=== PATIENT | male | born 1955 | race Caucasian/White ===

== ENCOUNTER 2019-08-25 07:04 | Inpatient (IN) | payer MEDICARE, MEDICAID ==
[~2019-08-25] VITALS: Ht 180.3 cm; Wt 63.5 kg
[2019-08-25] MEDS ORDERED: IV NS 0.9% 500 ML BAG IV ONE (07:30)
--- NOTE | 2019-08-25 07:33 | NUR ---
XRAY AT BEDSIDE
--- NOTE | 2019-08-25 07:38 | NUR ---
DANIEL FROM HOME TO ER BED 9. AAOX4. NO RESP DISTRESS NOTED. C/O VOMMITING OF BLOOD X 1 EPISODE. PT REPORTS THAT HE IT HAPPENED AT 5AM. STARTED DRY HEEVING AND THREW UP BRIGHT RED BLOOD WITH SCAB LIKE MATTERS. PT IS DENYING NAUSEA AT THIS TIME. NO ABDOMINAL PAIN. PT CAME IN WITH PICC ON HIS MIRNA W/ 1 LUMEN. BLOOD DRAWN AND SENT TO LAB. AWAITING MD FOR EVAL.
[2019-08-25 07:49] LABS: CALCIUM, SERUM 8.2 mg/dL (8.5-10.1); CARBON DIOXIDE 23 mmol/L (21-32); CHLORIDE 100 mmol/L (98-107); CREATININE 0.8 mg/dL (0.6-1.3); GLUCOSE 107 mg/dL (74-106); SODIUM SERUM 132 mmol/L (136-145); UREA NITROGEN, BLOOD 19 mg/dL (7-18)
[2019-08-25 07:54] LABS: ALANINE AMINOTRANSFERASE 49 U/L (12-78); ALBUMIN 2.7 g/dL (3.4-5.0); ALKALINE PHOSPHATASE 152 U/L (46-116); ASPARTATE AMINOTRANSFERASE 70 U/L (15-37); BILIRUBIN,DIRECT 0.3 mg/dL (0.0-0.2); BILIRUBIN,TOTAL 1.1 mg/dL (0.2-1.0); TOTAL PROTEIN, SERUM 6.7 g/dL (6.4-8.2)
[2019-08-25 07:55] LABS: BASOPHILS % (AUTO) 0.5 % (0.0-2.0); HEMATOCRIT 31 % (39-51); HEMOGLOBIN 10.4 g/dL (13.5-17.5); LYMPHOCYTES # (AUTO) 0.4 /CMM (0.8-4.8); LYMPHOCYTES % (AUTO) 7.9 % (20.0-44.0); MEAN CORPUSCULAR HGB CONC 34 g/dl (31.0-36.0); MEAN CORPUSCULAR VOLUME 96 fL (80-96); MONOCYTES # (AUTO) 0.3 /CMM (0.1-1.30); MONOCYTES % (AUTO) 7.1 % (2.0-12.0); NEUTROPHILS # (AUTO) 2.5 /CMM (1.8-8.9); NEUTROPHILS % (AUTO) 51.8 % (43.0-81.0); PLATELET COUNT (AUTO) 121 /CMM (150-450); RED BLOOD CELL COUNT(AUTO) 3.21 MIL/uL (4.5-6.0); WHITE BLOOD COUNT (AUTO) 4.8 K/uL (4.3-11.0)
[2019-08-25 07:57] LABS: EOSINOPHILS % (AUTO) 32.7 % (0.0-6.0)
[2019-08-25 08:28] LABS: EOSINOPHILS % (MANUAL) 34 % (0-4); LYMPHOCYTES % (MANUAL) 7 % (16-48); MONOCYTES % (MANUAL) 5 % (0-11.0); NEUTROPHILS % (MANUAL) 54 (42-76)
--- NOTE | 2019-08-25 09:21 | NUR ---
PATIENT C/O NAUSEA. MADE MD AWARE, RECEIVED VERBAL ORDER OF ZOFRAN 4MG IV. CARRIED OUT
[2019-08-25] MEDS ORDERED: ONDANSETRON HCL/PF 4 MG/2 ML VIAL ONE (09:23)
[2019-08-25] MEDS ORDERED: AMBR10TA5 PO (09:25)
[2019-08-25] MEDS ORDERED: SILD20TA2 PO (09:25)
--- NOTE | 2019-08-25 09:40 | NUR ---
got ms bed 201
--- NOTE | 2019-08-25 09:46 | NUR ---
ronald paged its nolan
[2019-08-25] MEDS ORDERED: ONDANSETRON HCL/PF - ER 4 MG/2 ML VIAL IV ONE (10:00)
--- NOTE | 2019-08-25 10:17 | NUR ---
report given to china of ms unit
--- NOTE | 2019-08-25 10:30 | NUR ---
ms rn received a new admission from er,63 year old male, awake,alert,oriented x4,came w/ dx of gi bleed,no symptoms at this time, denies pain, will monitor patient's condition.
--- NOTE | 2019-08-25 11:00 | NUR ---
ms rn amy francisco for admission, aware of this admission, will wait for her to see patient.
--- NOTE | 2019-08-25 11:39 | NUR ---
ms rn on bed, no distress noted.
[2019-08-25] MEDS ORDERED: ZOLPIDEM TARTRATE 5 MG TABLET PO PRN (12:30)
[2019-08-25] MEDS ORDERED: HYDROCODONE/APAP 5/325MG 1 EACH TABLET PO PRN (12:30)
[2019-08-25] MEDS ORDERED: MAGNESIUM HYDROXIDE 30 ML UDC PO PRN (12:30)
[2019-08-25] MEDS ORDERED: MAG HYDROX/AL HYDROX/SIMETH 30 ML UDC PO PRN (12:30)
[2019-08-25] MEDS ORDERED: ACETAMINOPHEN 325 MG TABLET PO PRN (12:30)
[2019-08-25] MEDS ORDERED: Z GUARD REMEDY 2 OZ OINT TP PRN (12:30)
--- NOTE | 2019-08-25 12:30 | NUR ---
ms martha was seen by nolan mcpherson/ orders made and carried out.
[2019-08-25] MEDS ORDERED: OCTREOTIDE 50 MCG in IV NS 0.9% 50 ML IV ONE (13:00)
[2019-08-25] MEDS ORDERED: OCTREOTIDE 1,250 MCG in IV NS 0.9% 247.5 ML IV PRN (13:30)
--- NOTE | 2019-08-25 13:58 | NUR ---
ms rn started on sandostatin drip,tolerated well.
[2019-08-25] MEDS ORDERED: ALPRAZOLAM 0.25 MG TABLET PO PRN (14:00)
--- NOTE | 2019-08-25 14:10 | NUR ---
ms rn patient vomited a lrge amount of bloody vomitous, texted nolan w/ orders made and carried out.
[2019-08-25 14:28] LABS: BASOPHILS % (AUTO) 0.3 % (0.0-2.0); EOSINOPHILS % (AUTO) 11.1 % (0.0-6.0); HEMATOCRIT 28 % (39-51); HEMOGLOBIN 9.5 g/dL (13.5-17.5); LYMPHOCYTES # (AUTO) 0.7 /CMM (0.8-4.8); LYMPHOCYTES % (AUTO) 12.4 % (20.0-44.0); MEAN CORPUSCULAR HGB CONC 34 g/dl (31.0-36.0); MEAN CORPUSCULAR VOLUME 97 fL (80-96); MONOCYTES # (AUTO) 0.5 /CMM (0.1-1.30); MONOCYTES % (AUTO) 8.6 % (2.0-12.0); NEUTROPHILS # (AUTO) 3.7 /CMM (1.8-8.9); NEUTROPHILS % (AUTO) 67.6 % (43.0-81.0); PLATELET COUNT (AUTO) 140 /CMM (150-450); RED BLOOD CELL COUNT(AUTO) 2.93 MIL/uL (4.5-6.0); WHITE BLOOD COUNT (AUTO) 5.4 K/uL (4.3-11.0)
[2019-08-25] MEDS: ONDANSETRON HCL/PF 4 MG/2 ML VIAL IVP PRN ×2 (14:32→23:39)
[2019-08-25] MEDS ORDERED: ANESTHESIA TRAY IN PYXIS 1 EA TRAY MC ONE (14:38)
[2019-08-25] MEDS: IV NS 0.9% 1,000 ML IV PRN (14:58)
[2019-08-25] MEDS: CEFTRIAXONE 1 G in IV D5W 50 ML IV SCH (15:19)
[2019-08-25] MEDS: METRONIDAZOLE 500MG/ NS 100ML 500 MG in PREMIX 1 EA IV SCH ×2 (17:42→23:57)
--- NOTE | 2019-08-25 19:17 | NUR ---
ms rn patient will have egd maryann, nolan will see patient maryann.
--- NOTE | 2019-08-25 19:30 | NUR ---
MS RN OPENING NOTE RECEIVED PATIENT IN BED. A/OX4. TOLERATING ROOM AIR. RESPIRATIONS ARE EVEN AND UNLABORED. NO S/S SOB NOTED. DENIES PAIN AT THIS TIME. IN NO APPARENT DISTRESS. IV ACCESS IN MIRNA PICC LINE SINGLE LUMEN RUNNING SANDASTATIN @10 AND FLAGYL AT 100ML/HR. BED IS LOW AND LOCKED, HOB FLAT, SIDE RIALS UP X2.. CALL LIGHT WITHIN REACH. WILL CONTINUE TO MONITOR.
[2019-08-25 19:31] LABS: BASOPHILS % (AUTO) 0.6 % (0.0-2.0); EOSINOPHILS % (AUTO) 12.9 % (0.0-6.0); HEMATOCRIT 25 % (39-51); HEMOGLOBIN 8.3 g/dL (13.5-17.5); LYMPHOCYTES # (AUTO) 0.6 /CMM (0.8-4.8); LYMPHOCYTES % (AUTO) 13.6 % (20.0-44.0); MEAN CORPUSCULAR HGB CONC 34 g/dl (31.0-36.0); MEAN CORPUSCULAR VOLUME 97 fL (80-96); MONOCYTES # (AUTO) 0.4 /CMM (0.1-1.30); MONOCYTES % (AUTO) 8.9 % (2.0-12.0); NEUTROPHILS # (AUTO) 3.1 /CMM (1.8-8.9); PLATELET COUNT (AUTO) 113 /CMM (150-450); RED BLOOD CELL COUNT(AUTO) 2.55 MIL/uL (4.5-6.0); WHITE BLOOD COUNT (AUTO) 4.8 K/uL (4.3-11.0)
--- NOTE | 2019-08-25 19:45 | NUR ---
MS RN NOTE GERMAN YAENS CAME TO SEE PATIENT, VERBAL ORDER TO TRANSFER TO TELE D/T PATIENT HAVING BRIGHT RED BLOOD EMESIS, H/H DROPPING, AND FEELING DIZZY UPON STANDING AND WALKING. ALSO ORDERED 1 UNIT PRBC AFTER EGD PROCEDURE. WILL NOTE AND ENDORSE TO TELE NURSE.
[2019-08-25 19:57] VITALS: BP 105/66
[2019-08-25 20:00] VITALS: BP 105/66
[2019-08-25] MEDS ORDERED: LORAZEPAM INJ 2 MG/ML VIAL IV PRN (20:00)
[2019-08-25] MEDS ORDERED: FAMOTIDINE/PF INJ 20 MG/2 ML VIAL IV ONE (20:17)
--- NOTE | 2019-08-25 20:30 | NUR ---
MS RN NOTE OR NURSES TAKING PATIENT FOR EGD PROCEDURE NOW.
--- NOTE | 2019-08-25 20:35 | NUR ---
MS RN NOTE GAVE REPORT TO ROSETTA WILKS IN 3W. WELT BUTTER HAND TOOK ALL BELONGINGS TO FROM 322-2.
[2019-08-25 21:26] VITALS: BP 104/53
--- NOTE | 2019-08-25 21:26 | NUR ---
MACHINE SHOP REPAIR TECHNICIAN NOTES RECEIVED PATIENT POST EGD PROCEDURE ON 2125. PATIENT IS AWAKE, ALERT AND ORIENTED X 4. BREATHING EVEN AND UNLABORED ON ROOM AIR. ABDOMEN IS SOFT AND NONDISTENDED. IV ON MIRNA PICC CLEAN DRY AND INTACT. SHOWS NO SIGNS OF REDNESS, NO INFILTRATION. VITAL SIGNS ARE STABLE. SAFETY PRECAUTION IN PLACE. BED IN LOWEST POSITION, LOCKED, AND CALL LIGHT KEPT WITHIN REACH. WILL CONTINUE TO MONITOR.
[2019-08-25] MEDS: PANTOPRAZOLE 40 MG VIAL IV SCH (21:46)
[2019-08-25] MEDS: TEMAZEPAM 7.5 MG CAPSULE PO SCH (21:56)
[2019-08-26] VITALS (12 sets, daily range): BP systolic 105–125; BP diastolic 56–68
--- NOTE | 2019-08-26 02:00 | NUR ---
MS RN NOTES PATIENT START BLOOD TRANSFUSION ON 0200. VITAL SIGNS STABLE. WILL CONTINUE TO MONITOR.
--- NOTE | 2019-08-26 06:00 | NUR ---
PSYCHOLOGY DEPARTMENT CHAIR NOTES COMPLETED 1 PRBC. NO SIGNS OF INFUSION REACTION. VITAL SIGNS STABLE THROUGH TRANSFUSION.
[2019-08-26] MEDS: METRONIDAZOLE 500MG/ NS 100ML 500 MG in PREMIX 1 EA IV SCH ×4 (06:07→23:14)
--- NOTE | 2019-08-26 06:40 | NUR ---
GENERATION MANAGER NOTES PATIENT ASLEEP IN BED ALERT AND ORIENTED X 4. BREATHING EVEN AND UNLABORED ON ROOM AIR. ABDOMEN IS SOFT AND NONDISTENDED. IV ON MIRNA PICC CLEAN DRY AND INTACT. SHOWS NO SIGNS OF REDNESS, NO INFILTRATION. ALL DUE MEDICATIONS GIVEN. TELE ON SR 70'S. SAFETY PRECAUTION IN PLACE. BED IN LOWEST POSITION, LOCKED, AND CALL LIGHT KEPT WITHIN REACH. WILL ENDORSE TO ONCOMING NURSE.
--- NOTE | 2019-08-26 07:31 | NUR ---
FARMWORKER DAIRY OPENING NOTES RECEIVED PATIENT IN BED, AWAKE, A/O X4. PATIENT ON ROOM AIR BREATHING EVENLY, UNLABORED, WITH NO ACUTE SIGNS OF DISTRESS AT THE MOMENT. PATIENT ON TELE MONITOR WITH NORMAL SINUS RHYTHM IN THE 70S. NPO AT THIS TIME. MIRNA PICC INTACT AND FLUSHING WELL. NO SIGNS OF INFILTRATION. SAFETY PRECAUTIONS IN PLACE; BED IN LOW POSITION AND LOCKED, RAILS UP X 2, CALL LIGHT WITHIN REACH. WILL CONTINUE TO MONITOR THE PATIENT.
[2019-08-26 07:38] LABS: CREATININE 0.8 mg/dL (0.6-1.3); MAGNESIUM 1.9 mg/dL (1.8-2.4); PHOSPHORUS 2.8 mg/dL (2.5-4.9); POTASSIUM 3.9 mmol/L (3.5-5.1)
[2019-08-26] MEDS: PANTOPRAZOLE 40 MG VIAL IV SCH ×2 (08:29→21:17)
[2019-08-26] MEDS: PROPRANOLOL HCL 10 MG TABLET PO SCH ×2 (10:24→21:18)
[2019-08-26] MEDS: DOCUSATE SODIUM 100 MG CAPSULE PO SCH (10:38)
[2019-08-26] MEDS: SILDENAFIL CITRATE 20 MG TABLET PO SCH (10:39)
[2019-08-26] MEDS: CALCIUM CARBONATE 500 MG TAB.CHEW PO SCH ×2 (10:53→20:04)
--- NOTE | 2019-08-26 11:04 | NUR ---
RN NOTES PATIENT COMPLAINING OF SEVERE HEARTBURN AND CHEST DISCOMFORT. MICHAEL PORTER NOTIFIED. TUMS ADMINISTERED ORDERED. STAT TROPONIN LEVEL ORDER IN PLACE BY MICHAEL PORTER. WILL CONTINUE TO MONITOR PATIENT.
[2019-08-26 11:21] LABS: BASOPHILS % (AUTO) 0.4 % (0.0-2.0); HEMATOCRIT 27 % (39-51); HEMOGLOBIN 8.9 g/dL (13.5-17.5); LYMPHOCYTES # (AUTO) 0.5 /CMM (0.8-4.8); LYMPHOCYTES % (AUTO) 8.4 % (20.0-44.0); MEAN CORPUSCULAR HGB CONC 33 g/dl (31.0-36.0); MEAN CORPUSCULAR VOLUME 96 fL (80-96); MONOCYTES # (AUTO) 0.4 /CMM (0.1-1.30); MONOCYTES % (AUTO) 6.9 % (2.0-12.0); NEUTROPHILS # (AUTO) 4.1 /CMM (1.8-8.9); NEUTROPHILS % (AUTO) 74.3 % (43.0-81.0); PLATELET COUNT (AUTO) 127 /CMM (150-450); RED BLOOD CELL COUNT(AUTO) 2.77 MIL/uL (4.5-6.0); WHITE BLOOD COUNT (AUTO) 5.5 K/uL (4.3-11.0)
[2019-08-26] MEDS: CEFTRIAXONE 1 G in IV D5W 50 ML IV SCH (15:28)
--- NOTE | 2019-08-26 17:42 | NUR ---
RN NOTES ASKED PT IF HE CAN PROVIDE HOME MED AMBRISENTAN AND HE SAID NO, MICHAEL PORTER MADE AWARE AND OK TO DC MED. WILL CONTINUE TO MONITOR PT
--- NOTE | 2019-08-26 18:45 | NUR ---
RN CLOSING NOTES PATIENT IN BED RESTING COMFORTABLY WATCHING TV AT THIS TIME. A/O X 4. HEAD OF THE BED ELEVATED AT 30 DEGREED WITH NO SIGNS OF DISTRESS AT THE MOMENT. ABLE TO VERBALIZE NEEDS. PATIENT ON ROOM AIR TOLERATING WELL. MIRNA PICC INTACT AND FLUSHING WELL. IV ANTIBIOTIC FLAGYL INFUSING AT THIS TIME. SAFETY MEASURES IN PLACE; BED IN LOW POSITION AND LOCKED, RAILS UP X 2, CALL LIGHT WITHIN REACH OF PT, WILL ENDORSE TO CERTIFIED EMERGENCY VEHICLE TECHNICIAN NURSE FOR AGUILA.
--- NOTE | 2019-08-26 19:02 | NUR ---
RN NOTES: RECEIVED LYING COMFORTABLY IN BED, A/OX4, ON RA SPO2-94%, NO LABORED BREATHING NOTED, ORIENTED TO UNIT AND STAFF, PICC ON MIRNA WITH IVF OF NS AT 75 ML/HR, FALL,SAFETY AND ASPIRATION PRECAUTION OBSERVED, BED LOW AND LOCKED, CALL LIGHT WITHIN EASY REACH.BED SIDE COMMODE AND URINAL AT BED SIDE.WILL CONTINUE TO MONITOR FOR ANY SIGN OF AGUILA/BLEEDING.
[2019-08-26] MEDS: TEMAZEPAM 7.5 MG CAPSULE PO SCH (21:19)
--- NOTE | 2019-08-27 01:00 | NUR ---
RN NOTES: ABLE TO SLEEP AND REST NO COMPLAINTS OF PAIN OR DISCOMFORT, KEPT MONITORED,ON CLOSE WATCH, NEEDS ATTENDED.
[2019-08-27] MEDS: IV NS 0.9% 1,000 ML IV PRN (05:02)
[2019-08-27] MEDS: METRONIDAZOLE 500MG/ NS 100ML 500 MG in PREMIX 1 EA IV SCH (05:04)
--- NOTE | 2019-08-27 06:14 | NUR ---
RN NOTES: AWAKE, REQUEST TO AMBULATE, STEADY GAIT, NO PAIN OR DISCOMFORT,CONVERSANT, ABLE TO REST AND SLEEP.
--- NOTE | 2019-08-27 07:15 | NUR ---
MS RN OPENING NOTES RECEIVED PT IN BED, AWAKE, A/O X4. PT TOLERATING RA, WITH NO ACUTE RESPIRATORY DISTRESS NOTED. PT DENIES ANY PAIN OR DISCOMFORT AT THIS TIME. ALSO DENIES ANY CONCERNS AND QUESTIONS AT THIS MOMENT. IVF NS AT 75ML/HR TO MIRNA PICCLINE SINGLE LUMEN, INTACT AND FLUID INFUSING WELL. PT KEPT COMFORTABLE. CALL LIGHT KEPT WITHIN REACH. PT'S BED IN LOWEST, LOCKED POSITION WITH SRX3. WILL CONTINUE PLAN OF CARE.
--- NOTE | 2019-08-27 07:36 | NUR ---
RN NOTES: HE WANTS TO BE DISCHARGE TODAY, NO PAIN THE ENTIRE NIGHT, NO BLEEDING IN ORAL AND ANAL ORIFICE, CALLS AND NEEDS ATTENDED, KEPT ON CLOSE WATCH.ENDORSED FOR CONTINUITY OF CARE.
[2019-08-27 07:37] LABS: BASOPHILS % (AUTO) 0.5 % (0.0-2.0); CALCIUM, SERUM 7.6 mg/dL (8.5-10.1); CREATININE 0.8 mg/dL (0.6-1.3); EOSINOPHILS % (AUTO) 9.3 % (0.0-6.0); HEMATOCRIT 28 % (39-51); HEMOGLOBIN 9.5 g/dL (13.5-17.5); LYMPHOCYTES # (AUTO) 0.5 /CMM (0.8-4.8); LYMPHOCYTES % (AUTO) 11.6 % (20.0-44.0); MAGNESIUM 1.8 mg/dL (1.8-2.4); MEAN CORPUSCULAR HGB CONC 34 g/dl (31.0-36.0); MEAN CORPUSCULAR VOLUME 96 fL (80-96); MONOCYTES # (AUTO) 0.5 /CMM (0.1-1.30); MONOCYTES % (AUTO) 12.1 % (2.0-12.0); NEUTROPHILS % (AUTO) 66.5 % (43.0-81.0); PHOSPHORUS 2.7 mg/dL (2.5-4.9); PLATELET COUNT (AUTO) 111 /CMM (150-450); POTASSIUM 3.4 mmol/L (3.5-5.1); RED BLOOD CELL COUNT(AUTO) 2.95 MIL/uL (4.5-6.0); WHITE BLOOD COUNT (AUTO) 4.5 K/uL (4.3-11.0)
[2019-08-27 08:00] VITALS: BP 98/50
[2019-08-27 09:00] VITALS: BP 90/50
[2019-08-27] MEDS: PROPRANOLOL HCL 10 MG TABLET PO SCH (09:00)
[2019-08-27] MEDS: CALCIUM CARBONATE 500 MG TAB.CHEW PO SCH (09:18)
[2019-08-27] MEDS: PANTOPRAZOLE 40 MG VIAL IV SCH (09:18)
[2019-08-27] MEDS: DOCUSATE SODIUM 100 MG CAPSULE PO SCH (09:18)
[2019-08-27] MEDS: SILDENAFIL CITRATE 20 MG TABLET PO SCH (09:22)
[2019-08-27] MEDS ORDERED: POTASSIUM CHLORIDE 20 MEQ TAB.PRT.SR PO SCH (10:00)
[2019-08-27] MEDS ORDERED: PROP10TA68 PO (11:23)
[2019-08-27] MEDS ORDERED: METR500T PO (11:23)
[2019-08-27] MEDS ORDERED: METRONIDAZOLE 500 MG TABLET PO SCH (11:30)
--- NOTE | 2019-08-27 12:59 | NUR ---
MS HISTOLOGY TECH NOTES PT TO DISCHARGE HOME, ACCOMPANIED BY FRIEND VIA PRIVATE CAR. PT TOLERATING RA, WITH NO ACUTE RESPIRATORY DISTRESS NOTES. PT DENIES ANY PAIN OR DISCOMFORT AT THE TIME OF DISCHARGE. PT REVIEWED AND SIGNED DISCHARGE INSTRUCTIONS AND INVENTORY LIST; PRESCRIPTION SENT TO [facility]. ALL BELONGINGS WITH THE PATIENT. PICC MIRNA SINGLE LUMEN REMOVED WITH TIP INTACT. ALL NEEDS AND CARE PROVIDED TO PATIENT. VITAL SIGNS STABLE AND RECORDED. HOSPITALIST/GEOGRAPHIC INFORMATION SYSTEMS ANALYST/CC AND CN/NN AWARE OF DISCHARGE. PT LEFT THE UNIT AT 1255, ESCORTED BY PILE TRIMMER VIA WHEELCHAIR TO THE LOBBY.
== END 2019-08-27 12:55 | disposition home or self-care (01) | DRG 369 ==
LOC: ER 07:05 → MEDSG2 09:55 → TELE 21:42 → MED 08-26 13:36
PROVIDERS: ADMIT Nurse Practitioner Acute Care; ATTEND Nurse Practitioner Acute Care
PROC: 06L28CZ Occlusion of Gastric Vein with Extraluminal Device, Via Natural or Artificial Opening Endoscopic (ICD-10-PCS; principal; 2019-08-25)
PROC: 30233N1 Transfusion of Nonautologous Red Blood Cells into Peripheral Vein, Percutaneous Approach (ICD-10-PCS; 2019-08-25)
PROC: 02HV33Z Insertion of Infusion Device into Superior Vena Cava, Percutaneous Approach (ICD-10-PCS; 2019-08-26)
PROC: B548ZZA Ultrasonography of Superior Vena Cava, Guidance (ICD-10-PCS; 2019-08-26)
DX: I85.01 Esophageal varices with bleeding (principal); C22.9 Malignant neoplasm of liver, not specified as primary or secondary; D62 Acute posthemorrhagic anemia; K76.6 Portal hypertension; Z94.4 Liver transplant status; I86.4 Gastric varices; B19.20 Unspecified viral hepatitis C without hepatic coma; K31.89 Other diseases of stomach and duodenum; K74.60 Unspecified cirrhosis of liver; I27.20 Pulmonary hypertension, unspecified; Z79.899 Other long term (current) drug therapy; F12.90 Cannabis use, unspecified, uncomplicated; F17.200 Nicotine dependence, unspecified, uncomplicated
CPT/HCPCS: 36415; 71045-TC; 80048-TC; 80061-TC; 80076-TC; 83735-TC; 84100-TC; 84484-TC; 85025-TC; 85730-TC; 86850-TC; 86921-TC; 87081-TC; A4216; C9113; G0378; J0696; J2354; J2405; J2704; J3490; J7030; J7040; J7050; J7060; P9016-BL

== ENCOUNTER 2019-09-01 13:18 | Outpatient (CLI) | payer MEDICARE, MEDICAID ==
[~2019-09-01 13:18] MED LIST: METR500T PO; PROP10TA68 PO; SILD20TA2 PO
[2019-09-01 13:24] VITALS: BP 109/60
== END 2019-09-01 23:59 | disposition home or self-care (01) ==
LOC: MSC 13:18
PROVIDERS: ATTEND Internal Medicine
DX: I85.00 Esophageal varices without bleeding (principal); Z98.84 Bariatric surgery status; C22.0 Liver cell carcinoma; K74.60 Unspecified cirrhosis of liver; Z86.19 Personal history of other infectious and parasitic diseases; R18.8 Other ascites; R14.0 Abdominal distension (gaseous)

== ENCOUNTER 2019-09-01 18:13 | Emergency (ER) | payer MEDICARE, MEDICAID ==
[~2019-09-01] VITALS: Ht 175.3 cm; Wt 64.0 kg
--- NOTE | 2019-09-01 18:36 | NUR ---
PT BIB SELF C/O ABD PAIN AND DISTENSION X3 DAYS. 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 OVER THE LAST 3 DAYS DISTENSION GOT WORSE AND PAIN HAS BECOME INTOLERABLE. PMD IZABELLA AT [facility] ADVISED TO COME TO ER FOR PARACENTESIS. RESP EVEN UNLABORED, SKIN WARM DRY TAUT. A/OX4. IN ER BED 08.
--- NOTE | 2019-09-01 19:11 | NUR ---
seen and examined by
--- NOTE | 2019-09-01 20:02 | NUR ---
blood drawn and sent to lab
[2019-09-01 20:04] LABS: BASOPHILS # (AUTO) 0.1 /CMM (0.0-0.2); BASOPHILS % (AUTO) 1.3 % (0.0-2.0); EOSINOPHILS % (AUTO) 3.2 % (0.0-6.0); HEMATOCRIT 30 % (39-51); HEMOGLOBIN 9.9 g/dL (13.5-17.5); LYMPHOCYTES # (AUTO) 0.7 /CMM (0.8-4.8); LYMPHOCYTES % (AUTO) 17.2 % (20.0-44.0); MEAN CORPUSCULAR HGB CONC 33 g/dl (31.0-36.0); MEAN CORPUSCULAR VOLUME 95 fL (80-96); MONOCYTES # (AUTO) 0.8 /CMM (0.1-1.30); MONOCYTES % (AUTO) 17.7 % (2.0-12.0); NEUTROPHILS # (AUTO) 2.6 /CMM (1.8-8.9); NEUTROPHILS % (AUTO) 60.6 % (43.0-81.0); PLATELET COUNT (AUTO) 152 /CMM (150-450); RED BLOOD CELL COUNT(AUTO) 3.14 MIL/uL (4.5-6.0); WHITE BLOOD COUNT (AUTO) 4.3 K/uL (4.3-11.0)
[2019-09-01 20:19] LABS: CALCIUM, SERUM 8.2 mg/dL (8.5-10.1); CREATININE 0.8 mg/dL (0.6-1.3); POTASSIUM 3.8 mmol/L (3.5-5.1)
[2019-09-01 20:28] LABS: ALBUMIN 2.6 g/dL (3.4-5.0); BILIRUBIN,DIRECT 0.4 mg/dL (0.0-0.2); BILIRUBIN,TOTAL 1.1 mg/dL (0.2-1.0); TOTAL PROTEIN, SERUM 6.7 g/dL (6.4-8.2)
--- NOTE | 2019-09-01 21:20 | NUR ---
AT BEDSIDE FOR US AND PARACENTESIS
--- NOTE | 2019-09-01 21:38 | NUR ---
FINISHED PARACENTESIS PROCEDURE
[2019-09-01 21:57] LABS: LYMPHOCYTES % (MANUAL) 20 % (16-48); MONOCYTES % (MANUAL) 20 % (0-11.0); NEUTROPHILS % (MANUAL) 60 (42-76)
--- NOTE | 2019-09-01 22:09 | NUR ---
Patient discharged to home in stable condition. Written and verbal after care instructions given. Patient verbalizes understanding of instruction.
[2019-09-01 22:10] VITALS: BP 115/84
== END 2019-09-01 22:10 | disposition home or self-care (01) ==
LOC: ER 18:15
DX: R18.8 Other ascites (principal); K74.60 Unspecified cirrhosis of liver; Z79.899 Other long term (current) drug therapy; Z85.05 Personal history of malignant neoplasm of liver
CPT/HCPCS: 36415; 49083; 80048-TC; 80076-TC; 83690-TC; 85025-TC; 85730-TC

== ENCOUNTER 2023-09-11 17:05 | Emergency (ER) | payer MEDICARE, OTHER ==
[~2023-09-11] VITALS: Ht 177.8 cm; Wt 68.0 kg
[2023-09-11 20:31] LABS: BASOPHILS % (AUTO) 0.2 % (0.0-2.0); EOSINOPHILS % (AUTO) 0.6 % (0.0-6.0); HEMATOCRIT 42 % (39-51); HEMOGLOBIN 14.7 g/dL (13.5-17.5); LYMPHOCYTES # (AUTO) 0.8 K/uL (0.8-4.8); LYMPHOCYTES % (AUTO) 18.8 % (20.0-44.0); MEAN CORPUSCULAR HEMOGLOBIN 36 PG (26.0-33.0); MEAN CORPUSCULAR HGB CONC 35 g/dl (31.0-36.0); MEAN CORPUSCULAR VOLUME 102 fL (80-96); MONOCYTES # (AUTO) 0.8 K/uL (0.1-1.30); MONOCYTES % (AUTO) 18.9 % (2.0-12.0); NEUTROPHILS # (AUTO) 2.7 K/uL (1.8-8.9); NEUTROPHILS % (AUTO) 61.5 % (43.0-81.0); PLATELET COUNT (AUTO) 97 K/uL (150-450); RED CELL DISTRIBUTION WIDTH 14.8 % (11.5-15.0); WHITE BLOOD COUNT (AUTO) 4.3 K/uL (4.3-11.0)
[2023-09-11 20:43] LABS: APPEARANCE,URINE SLIGHTLY CLOUDY (CLEAR); BILIRUBIN,URINE 2+ (NEGATIVE); BLOOD, URINE 2+ Ery/uL (NEGATIVE); COLOR,URINE YELLOW (YELLOW); KETONES,URINE 1+ mg/dL (NEGATIVE); LEUKOCYTE ESTERASE ,URINE NEGATIVE (NEGATIVE); NITRITE, URINE POSITIVE (NEGATIVE); PROTEIN,URINE 1+ mg/dl (NEGATIVE); UGLUCOSE NEGATIVE (NEGATIVE)
[2023-09-11 20:47] LABS: ALBUMIN 3.3 g/dL (3.4-5.0); BILIRUBIN,DIRECT 0.9 mg/dL (0.0-0.2); BILIRUBIN,TOTAL 3.1 mg/dL (0.2-1.0); CALCIUM, SERUM 9.2 mg/dL (8.5-10.1); CREATININE 0.8 mg/dL (0.6-1.3); POTASSIUM 3.6 mmol/L (3.5-5.1); TOTAL PROTEIN, SERUM 7.4 g/dL (6.4-8.2)
[2023-09-11 20:49] LABS: INR 1.36 (0.91-1.10); PARTIAL THROMBOPLASTIN TIME 35.5 SEC (24.3-34.3); PROTHROMBIN TIME 14.1 SECS (9.2-11.1)
[2023-09-11 20:52] LABS: ADD URINE CULTURE YES; BACTERIA,URINE 1+ /HPF (None Seen); CALCIUM OXALATE CRYSTALS,UR Many /HPF (None Seen); MUCUS,URINE Moderate /LPF (None Seen); RBC,URINE 21-50 /HPF (0-2); WBC,URINE 0-2 /HPF (0-3)
[2023-09-11] MEDS ORDERED: KETOROLAC TROMETHAMINE 15 MG/ML VIAL IV ONE (21:00)
[2023-09-11 21:07] LABS: AMPHETAMINE, URINE NEGATIVE (NEGATIVE); BARBITURATE, URINE NEGATIVE (NEGATIVE); BENZODIAZEPINE, URINE NEGATIVE (NEGATIVE); COCCAINE, URINE NEGATIVE (NEGATIVE); OPIATE, URINE NEGATIVE (NEGATIVE); PHENCYCLIDINE SCREEN,URINE NEGATIVE (NEGATIVE)
[2023-09-11 21:12] LABS: CANNABINOID, URINE POSITIVE (NEGATIVE)
[2023-09-11] MEDS ORDERED: TRAM50TA2 PO ×2 (21:15→21:18)
[2023-09-11] MEDS ORDERED: CEPH500C2 PO (21:15)
[2023-09-11] MEDS ORDERED: CEPHALEXIN MONOHYDRATE 500 MG CAPSULE PO ONE ×2 (21:25→21:30)
[2023-09-11] MEDS ORDERED: IBUP-1957 PO (21:32)
[2023-09-11] MEDS ORDERED: KETOROLAC TROMETHAMINE 15 MG/ML VIAL ONE (21:36)
[2023-09-11 21:55] VITALS: BP 130/73; TEMP 98; O2SAT 100
[2023-09-11] MEDS ORDERED: KETOROLAC TROMETHAMINE 15 MG/ML VIAL IM ONE (22:00)
[2023-09-11 22:20] LABS: ANISOCYTOSIS 1+; BAND % (MANUAL) 2 % (0.0-5.0); LYMPHOCYTES % (MANUAL) 20 % (16-48); MONOCYTES % (MANUAL) 13 % (0-11.0); NEUTROPHILS % (MANUAL) 65 (42-76); PLATELET ESTIMATE DECREASED
== END 2023-09-11 21:56 | disposition home or self-care (01) ==
LOC: ER 17:05
DX: S22.32XA Fracture of one rib, left side, initial encounter for closed fracture (principal); S62.317A Displaced fracture of base of fifth metacarpal bone, left hand, initial encounter for closed fracture; N39.0 Urinary tract infection, site not specified; I10 Essential (primary) hypertension; R51.9 Headache, unspecified; Z79.899 Other long term (current) drug therapy; W18.39XA Other fall on same level, initial encounter; Y93.89 Activity, other specified; Y92.89 Other specified places as the place of occurrence of the external cause; Y99.8 Other external cause status
CPT/HCPCS: 29125; 36415; 70450; 70486; 71250; 73130; 74176; 80048; 80076; 80307; 80320; 81001; 85007; 85025; 85730; 87086; 96372; 99285; J1885; G0480

== ENCOUNTER 2025-03-28 08:31 | Emergency (ER) | payer MEDICARE, OTHER ==
[~2025-03-28] VITALS: Ht 175.3 cm; Wt 81.6 kg
[~2025-03-28 08:31] MED LIST changes: +CEPH500C2 PO; +IBUP-1957 PO
[2025-03-28 08:41] VITALS: TEMP 98
[2025-03-28] MEDS: IV NS 0.9% 1,000 ML BAG IV ONE (09:10)
[2025-03-28 09:11] LABS: PLATELET COUNT (AUTO) 86 K/uL (150-450); RED BLOOD CELL COUNT(AUTO) 4.07 MIL/uL (4.5-6.0); RED CELL DISTRIBUTION WIDTH 15.2 % (11.5-15.0); WHITE BLOOD COUNT (AUTO) 2.2 K/uL (4.3-11.0)
[2025-03-28 09:18] LABS: CALCIUM, SERUM 8.3 mg/dL (8.5-10.1); CREATININE 0.8 mg/dL (0.6-1.3); SODIUM SERUM 140 mmol/L (136-145); UREA NITROGEN, BLOOD 7 mg/dL (7-18)
[2025-03-28 09:20] LABS: ALCOHOL, BLOOD < 3 mg/dL (0-10)
[2025-03-28 10:06] LABS: LYMPHOCYTES % (MANUAL) 25 % (16-48); MONOCYTES % (MANUAL) 6 % (0-11.0); NEUTROPHILS % (MANUAL) 67 (42-76); PLATELET ESTIMATE DECREASED
[2025-03-28 14:46] VITALS: BP 115/63; O2SAT 98
== END 2025-03-28 11:15 | disposition home or self-care (01) ==
LOC: ER 08:35 → UNDOADMIN 10:20 → TELE 10:20 → ER 11:15 → UNDODISIN 11:15 → TELE 23:38 → TELE IN 23:38
DX: R41.0 Disorientation, unspecified (principal); I27.20 Pulmonary hypertension, unspecified; Z85.05 Personal history of malignant neoplasm of liver; Z79.899 Other long term (current) drug therapy
CPT/HCPCS: 99285; 96360; 93005; 71045; 70450; 82140; 85027; 80048; 85007; 36415; 84484 ×2; 87081; 80320; J7030; G0378; G0480